=== PATIENT | male | born 2000 | race Caucasian/White ===

== ENCOUNTER 2019-01-13 19:43 | Observation (INO) | payer SELFPAY ==
[2019-01-13 19:44] VITALS: BP 118/74; PULSE 89; RESP 18; TEMP 37.3; O2SAT 99; BMI 21.7
[2019-01-13 20:23] LABS: Bacteria 0 SEEN /hpf (None Seen); Mucous, Urine 0 SEEN /hpf (<or=2+); Red Blood Cells-Urine 0 SEEN /hpf (0-5); Squamous Epithelial Cells - UA 0 SEEN /hpf (0-5); White Blood Cells 0 SEEN /hpf (0-5)
[2019-01-13 20:46] LABS: Color, Urine Yellow (Yellow); Glucose, Dipstick Normal (Normal); Ketone-Dipstick Negative (Negative); Leukocyte Esterase-Dipstick Negative /ul (Negative); Nitrite-Dipstick Negative (Negative); Occult Blood-Urine Negative /ul (Negative); Protein-Dipstick Negative (Negative); Urine Bilirubin Dipstick Negative (Negative); Urine Clarity Clear (Clear); Urine Urobilinogen Normal (Normal)
--- NOTE | 2019-01-13 21:35 | CT_ITS ---
We are attempting to reach an attending provider to discuss findings. An addendum with communication details will be sent when the communication is complete. STUDY: CT ABDOMEN AND PELVIS WITH CONTRAST REASON FOR EXAM: Male, 18 years old. Right lower quadrant pain RADIATION DOSAGE (If Supplied By Facility): CTDIvol = ( 13.55 ) mGy, DLP = ( 572.19 ) mGycm TECHNIQUE: Transaxial images were obtained from the dome of the diaphragm to the symphysis pubis without oral contrast. 100 IV/Oral Isovue 300 was administered. Sagittal and coronal images were reconstructed. Individualized dose optimization techniques were used for this CT. COMPARISON: None. FINDINGS: The visualized lung bases are unremarkable. The visualized portions of the heart are within normal limits. Normal liver. There is mild gallbladder distention.. Normal spleen. Normal pancreas. Normal bilateral adrenal glands. Normal right kidney. Normal left kidney. Normal visualized stomach. Normal small intestine. There is a moderate colonic fecal load. The appendix measures 6 mm in diameter. There are no adjacent inflammatory changes. Normal abdominal aorta. Normal inferior vena cava. Normal retroperitoneum. There is mild distended bladder. There are likely bilateral scrotal hydroceles. Normal abdominal wall. There is Schmorl's node inferior endplate of L4 and inferior endplate of L3. CT/Abdomen/Pelvis WITH Contrast IMPRESSION: The appendix is at the upper limits of normal size with a diameter of 6 mm.. There are no adjacent inflammatory changes. The possibility of early appendicitis cannot be excluded. This should be correlated with clinical history, physical exam findings and laboratory results. CT rectal contrast study or delayed CT exam could be performed to further evaluate. Mild gallbladder distention, if there is clinical concern for acute cholecystitis right upper quadrant ultrasound could be performed Moderate colonic fecal load Mild distended bladder Likely bilateral scrotal hydroceles Lumbar spine Schmorl's nodes The results were called to and discussed with Physician: Georges Smalls after my review at approximately 12:02 AM 01/14/2019. Electronically Signed: Sharif Obrien at 0:05 EDT Tel , Service support ,
[2019-01-13 21:44] LABS: Absolute Lymphocyte Count 1.44 X10^3/uL (0.83-4.51); Absolute Neutrophil Count 8.1 X10^3/uL (2.0-7.7); Basophil# 0.02 X10^3/uL; Basophil% 0.2 % (0-1); Eosinophil# 0.06 X10^3/uL; Eosinophils% 0.6 % (0-5); Hematocrit 41.5 % (40-54); Hemoglobin 14.5 g/dL (13.0-16.5); Lymphocyte # 1.44 X10^3/ul (4.0); Lymphocyte % 13.5 % (19-41); Mean Corp Hgb Conc 34.9 g/dL (32-36); Mean Corpuscular Hgb 30.5 pg (27.0-32.0); Mean Corpuscular Volume 87.4 fL (80-94); Mean Platelet Vol. 8.8 fl (6.2-12.0); Monocyte# 0.96 X10^3/uL; NRBC Flagged by Analyzer 0 % (0-5); Neutrophil # 8.14 X10^3/uL (2.7-7.7); Neutrophil % 76.4 % (47-70); Platelet Count 192 K/mm3 (150-450); RBC Distribution Width CV 11.9 % (11.6-14.6); RBC Distribution Width SD 38.3 fl (35.1-43.9); Red Blood Count 4.75 M/mm3 (4.6-6.2); White Blood Count 10.7 K/mm3 (4.4-11.0)
[2019-01-13 21:56] LABS: Anion Gap 7 (5-15); BUN 20 mg/dL (7-18); BUN/Creat Ratio 18.2 RATIO (10-20); Calcium,Total 9.1 mg/dL (8.5-10.1); Chloride 106 mmol/L (98-107); EST Glomerular Filtration Rate 91 mL/min (>60); Est Glom Filt Rate - Afr Amer 110 mL/min (>60); Estimated Creatinine Clearance 117.18 ml/min; Glucose 81 mg/dL (74-106); Potassium 3.8 mmol/L (3.5-5.1); Sodium Level 141 mmol/L (136-145)
--- NOTE | 2019-01-13 21:57 | ED.VIS.GI ---
History of Present Illness Chief Complaint: Abd Pain Informant: Patient - Abdominal Pain/Flank Pain Onset: Today - afternoon Context: Gradual Onset Timing: Continuous Quality: Aching Location: RLQ Current Severity: Moderate Maximum Severity: Moderate Worsened by: Car ride Relieved by: Nothing - Nausea/Vomiting/Emesis GI Symptom: Negative for: Nausea, Vomiting - Diarrhea/Melena/Hematochezia GI Symptom: Negative for: Diarrhea, Melena, Hematochezia Associated Symptoms: Negative for: Dysuria, Frequency, Hematuria, Urgency Narrative: Patient states he woke up this morning not feeling well but had no abdominal discomfort or nausea, he states he felt a little congested in his face/nose. As the day went on he started developing right lower quadrant discomfort, no radiation or migration, it is more prominent now. No fevers. Decreased appetite but no nausea. Mom states there is concern for appendicitis because both his mother and father had it. Past Medical History - Allergies and Home Meds Allergies/Adverse Reactions: Allergies No Known Allergies Allergy (Verified 01/13/19 19:43) Primary Care Physician: Deven Buckley DO [Primary Care Provider] - Past Medical History: None Surgical History: - - Orthopedic forearm Lives: With Family Smoking Status: Never smoker Drugs: None - Family History Maternal Family History: Reports: No pertinent history Review of Systems General: Reports: Malaise. Denies: Chills, Fever, Sweats Eyes: Denies: Visual changes - bilaterally, Diplopia ENT: Denies: Rhinorrhea, Sore throat Cardiovascular: Denies: Chest pain, Palpitations Respiratory: Denies: Dyspnea, Cough, Dyspnea on exertion Gastrointestinal: Reports: Abdominal pain. Denies: Nausea, Vomiting, Diarrhea, Melena, Hematochezia Genitourinary: Denies: Dysuria, Hematuria, Frequency Musculoskeletal: Denies: Back pain, Extremity Pain Skin: Denies: Rash, Wounds Neurological: Denies: Headache, Weakness, Numbness Physical Exam Vital Signs/Narrative: Vital Signs Temp Pulse Resp BP Pulse Ox 01/13/19 19:44 99.1 F 89 18 118/74 99 Inital Vital Signs reviewed: Yes General: Well nourished, Well developed, No Acute Distress Head: Normocephalic, Atraumatic Eyes: Perrl, EOMI ENT: Moist mucous membranes, No rhinorrhea Neck: Supple, Nontender Cardiovascular: Regular rate, Regular rhythm, No murmurs Respiratory: No distress, CTA bilaterally, Chest nontender Abdomen: Soft, Nontender, Nondistended, Normal bowel sounds, Tender - Right lower quadrant, very tender at McBurney's point, Guarding - Voluntary at McBurney's point only, Psoas sign, Obturator sign. Negative for: Rebound tenderness, Rovsig's sign, Miranda's sign Back: Nontender, Normal Inspection. Negative for: CVA tenderness Extremities: Nontender, No edema Skin: Normal color, No rash, No Trauma Neurological: Alert, Oriented x3, Cranial nerves II-XII grossly intact, Normal Strength, Normal Sensation Psychological: Normal affect, Normal Mood Diagnostic/Tx/Re-eval Laboratory Tests 01/13/19 01/13/19 01/13/19 Range/Units 21:15 21:15 20:11 WBC 10.7 (4.4-11.0) K/mm3 RBC 4.75 (4.6-6.2) M/mm3 Hgb 14.5 (13.0-16.5) g/dL Hct 41.5 (40-54) % MCV 87.4 (80-94) fL MCH 30.5 (27.0-32.0) pg MCHC 34.9 (32-36) g/dL RDW Std Deviation 38.3 (35.1-43.9) fl RDW Coeff of Gabriela 11.9 (11.6-14.6) % Plt Count 192 (150-450) K/mm3 MPV 8.8 (6.2-12.0) fl Immature Gran % (Auto) 0.300 (0.0-0.9) % Neut % (Auto) 76.4 H (47-70) % Lymph % (Auto) 13.5 L (19-41) % [place] % (Auto) 9.0 (0-10) % Eos % (Auto) 0.6 (0-5) % Baso % (Auto) 0.2 (0-1) % Absolute Neuts (auto) 8.1 H (2.0-7.7) X10^3/uL Absolute Lymphs (auto) 1.44 (0.83-4.51) X10^3/uL Nucleated RBC % 0 (0-5) % Sodium 141 (136-145) mmol/L Potassium 3.8 (3.5-5.1) mmol/L Chloride 106 (98-107) mmol/L Carbon Dioxide 28.0 (21.0-32.0) mmol/L Anion Gap 7 (5-15) BUN 20 H (7-18) mg/dL Creatinine 1.10 (0.70-1.30) mg/dL Estim Creat Clear Calc 117.18 ml/min Est GFR (MDRD) Af Amer 110 (>60) mL/min Est GFR (MDRD) Non-Af 91 (>60) mL/min BUN/Creatinine Ratio 18.2 (10-20) RATIO Glucose 81 (74-106) mg/dL Calcium 9.1 (8.5-10.1) mg/dL Urine Color Yellow (Yellow) Urine Clarity Clear (Clear) Urine pH 6.0 (5.0 - 8.0) Ur Specific [place] 1.020 (1.002-1.030) Urine Protein Negative (Negative) mg/dl Urine Glucose (UA) Normal (Normal) mg/dl Urine Ketones Negative (Negative) mg/dl Urine Occult Blood Negative (Negative) /ul Urine Nitrite Negative (Negative) Urine Bilirubin Negative (Negative) mg/dL Urine Urobilinogen Normal (Normal) mg/dl Ur Leukocyte Esterase Negative (Negative) /ul Urine RBC 0 SEEN (0-5) /hpf Urine WBC 0 SEEN (0-5) /hpf Ur Squamous Epith Cells 0 SEEN (0-5) /hpf Urine Bacteria 0 SEEN (None Seen) /hpf Urine Mucus 0 SEEN (<or=2+) /hpf - Medical Decision Making Patient has a white blood count at the high end of normal with a slight leftward shift, no bands. I am suspicious of appendicitis. I obtained a CT scan with oral and IV contrast, there is contrast in the ascending colon however the appendix did not fill, but there is no appendicolith. It is 6 mm, high end of normal limits, with no obvious signs of inflammation. Radiology could not rule out acute appendicitis based on this, but saw no other explanation for the patient's pain based on CT. My suspicion is that this is early acute appendicitis. Discussed with Dr. Alaniz who evaluated in the ED and agrees. ED Disposition - Plan for ED Patient: Disposition: Acute Care [facility] Diagnosis: Acute appendicitis Referrals: Deven Buckley DO [Primary Care Provider] -
[2019-01-13 22:00] VITALS: BP 120/74; PULSE 67; RESP 18; RESP 71; TEMP 36.9; O2SAT 97
[2019-01-13] MEDS: Morphine 4 MG/ML Syringe IV (22:13)
[2019-01-13] MEDS: 0.9% Normal Saline 1,000 ML 250 ML IV (22:14)
[2019-01-13 22:58] VITALS: BP 120/75; PULSE 57; RESP 18; TEMP 36.9; O2SAT 100
[2019-01-14] VITALS (12 sets, daily range): BP systolic 98–129; BP diastolic 57–84; PULSE 45–79; RESP 16–18; TEMP 36.3–37.2; O2SAT 95–100; BMI 22.0
--- NOTE | 2019-01-14 | APP_PTH ---
PATIENT: LUIS SANTIAGO LOC: MS3 U#:[id number] AGE/SX: 18/M ROOM: MS316 RE01/14/[address]: Dr. Uziel Alaniz MD : 2000 BED: 1 DIS: 01/14/2019 SPEC #: [id number] RECD: 01/14/19 12:42 STATUS: SHANELL RESandra #: [id number] MADIHA: 01/14/19 00:[address]: Uziel Alaniz DEPT: SURGICAL PATHOLOGY RECD BY: Arsenio Baumann ENTERED: 01/14/19 12:43 SP TYPE: APPENDIX OTHR DR: Dr. Deven Buckley DO Tissues: Appendix, NOS Procedures: Surgery Specimen Level III HEADER OPERATION: Laparoscopic, appendectomy PRE-OP DIAGNOSIS: Acute appendicitis TISSUE SUBMITTED: Appendix MICROSCOPIC DIAGNOSIS Appendix, appendectomy: Acute appendicitis and periappendicitis. SJ:bonnie 01/15/19 MICROSCOPIC DESCRIPTION Slides are reviewed. GROSS DESCRIPTION Received is one container labeled with the patient's name and designated appendix. The specimen consists of a vermiform appendix measuring 9 cm in length and 1 cm in greatest diameter. No gross perforations are identified. Submitted serial sections reveal a pin point lumen. Towel Cabinet Repairer sections are submitted in one cassette. / AM:sp 01/14/19 TC: 2 CPT: 92591
--- NOTE | 2019-01-14 00:45 | HP.PCM_ITS ---
Problem List (1) Acute appendicitis Status: Acute Qualifiers: Acute appendicitis type: unspecified acute appendicitis type Qualified Code(s): K35.80 - Unspecified acute appendicitis History of Present Illness Date of Admission: 01/14/19 The patient is a 18 year old M who presented with right lower quadrant pain. He said the pain started early this morning. He said he has not felt well all day. He is complaining of right lower quadrant pain that does not radiate. He does not complain of any nausea or vomiting at the moment. No fevers or chills. Past Medical History Allergies No Known Allergies Allergy (Verified 01/13/19 19:43) Home Medications: Ambulatory Orders Medication Instructions Recorded NK 01/13/19 Surgical History: - - Orthopedic forearm Lives: With Family Smoking Status: Never smoker Drugs: None - *Family History Maternal History Items: No pertinent history Review of Systems Constitutional: Reports: Anorexia. Denies: Chills, Fever Cardiovascular: Denies: Chest Pain Respiratory: Denies: Cough, Shortness of Breath Gastrointestinal: Reports: Abdominal Pain. Denies: Nausea, Vomiting Genitourinary: Denies: Dysuria Musculoskeletal: Denies: Joint Tenderness Skin: Denies: Dryness Neurological: Denies: Balance problems Psychiatric: Denies: Anxiety, Depression VTE Information - Inpt Only VTE Present on Admission: No VTE Mechan Device Prophylaxis: SCD's Patient Problems: Active and Suspected Problems Acute appendicitis (Acute) - Physical Exam General: Alert, Oriented x3 Neck: No JVD Lungs: Normal air movement Cardiovascular: Regular rate, Regular Rhythm Abdomen: Soft, Non-Distended, Tender - Tender in the right lower quadrant at McBurney's point. Positive Rovsing sign. Skin: No rashes Musculoskeletal: No Tenderness to Palpation of Joints or Extremities Neurological: Cranial nerves II-XII grossly intact Psych/Mental Status: Normal Affect Vital Signs Temp Pulse Resp BP Pulse Ox 98.9 F 68 18 129/84 H 100 01/14/19 00:00 01/14/19 00:00 01/14/19 00:00 01/14/19 00:00 01/14/19 00:00 Oxygen Delivery Method Room Air Weight: 169 lb 1.513 oz Body Mass Index (BMI) 21.7 Laboratory Tests Past 24 Hrs 01/13/19 01/13/19 01/13/19 20:11 21:15 21:15 WBC 10.7 RBC 4.75 Hgb 14.5 Hct 41.5 MCV 87.4 MCH 30.5 MCHC 34.9 RDW Std Deviation 38.3 RDW Coeff of Gabriela 11.9 Plt Count 192 MPV 8.8 Immature Gran % (Auto) 0.300 Neut % (Auto) 76.4 H Lymph % (Auto) 13.5 L [place] % (Auto) 9.0 Eos % (Auto) 0.6 Baso % (Auto) 0.2 Absolute Neuts (auto) 8.1 H Absolute Lymphs (auto) 1.44 Nucleated RBC % 0 Sodium 141 Potassium 3.8 Chloride 106 Carbon Dioxide 28.0 Anion Gap 7 BUN 20 H Creatinine 1.10 Estim Creat Clear Calc 117.18 Est GFR (MDRD) Af Amer 110 Est GFR (MDRD) Non-Af 91 BUN/Creatinine Ratio 18.2 Glucose 81 Calcium 9.1 Urine Color Yellow Urine Clarity Clear Urine pH 6.0 Ur Specific [place] 1.020 Urine Protein Negative Urine Glucose (UA) Normal Urine Ketones Negative Urine Occult Blood Negative Urine Nitrite Negative Urine Bilirubin Negative Urine Urobilinogen Normal Ur Leukocyte Esterase Negative Urine RBC 0 SEEN Urine WBC 0 SEEN Ur Squamous Epith Cells 0 SEEN Urine Bacteria 0 SEEN Urine Mucus 0 SEEN Clinical Impression(s) from Imaging Studies Abdomen/Pelvis CT 01/13/19 21:35 IMPRESSION: The appendix is at the upper limits of normal size with a diameter of 6 mm.. There are no adjacent inflammatory changes. The possibility of early appendicitis cannot be excluded. This should be correlated with clinical history, physical exam findings and laboratory results. CT rectal contrast study or delayed CT exam could be performed to further evaluate. Mild gallbladder distention, if there is clinical concern for acute cholecystitis right upper quadrant ultrasound could be performed Moderate colonic fecal load Mild distended bladder Likely bilateral scrotal hydroceles Lumbar spine Schmorl's nodes The results were called to and discussed with Physician: Georges Smalls after my review at approximately 12:02 AM 01/14/2019. Electronically Signed: Sharif Obrien, at 0:05 EDT Tel , Service support , ADDENDUM: 01/14/19 0014 IMPRESSION: The appendix is at the upper limits of normal size with a diameter of 6 mm.. There are no adjacent inflammatory changes. The possibility of early appendicitis cannot be excluded. This should be correlated with clinical history, physical exam findings and laboratory results. CT rectal contrast study or delayed CT exam could be performed to further evaluate. Mild gallbladder distention, if there is clinical concern for acute cholecystitis right upper quadrant ultrasound could be performed Moderate colonic fecal load Mild distended bladder Likely bilateral scrotal hydroceles Lumbar spine Schmorl's nodes The results were called to and discussed with Physician: Georges Smalls after my review at approximately 12:02 AM 01/14/2019. N.B. : The above information has been verbally conveyed by Sharif Obrien to Georges Smalls MD, on 01/14/2019 00:07:54 (ET). Electronically Signed: Sharif Obrien, at 0:05 EDT Tel , Service support , Assessment/Plan All Active Problems Acute appendicitis (Acute) 18-year-old male with acute appendicitis 1. Patient has right lower quadrant pain and left shift on CBC. CT scan shows a borderline appendix with thick gomez. This appears to be acute appendicitis. I explained that there is possibility that it is not but I would recommend exploratory laparoscopy with appendectomy to rule this out. His story fits with appendicitis well. He reports that the pain was sudden onset and has not gone away and is in the right lower quadrant. He explains that he has anorexia and has not felt like eating all day but he does not have any nausea or vomiting. I will start the patient on antibiotics and take him in the morning for laparoscopic appendectomy. 2. I explained the appendectomy to the patient in detail. I explained the risks including but not limited to bleeding, infection, injury to surrounding organs such as the colon, ureter, bladder. Patient understands the risks and is willing to proceed with surgery. Uziel Alaniz MD Pager: [facility] [address] [place] [address], [address] [place] [address] Office:
[2019-01-14] MEDS: 0.9% Normal Saline 1,000 ML 100 ML IV (01:45)
[2019-01-14] MEDS: Piperacil/Tazobactam 3.375 GM/50 ML ML IV (02:17)
[2019-01-14] MEDS: Bupiv/Epi 0.25% 30 ML Vial (06:50)
--- NOTE | 2019-01-14 07:25 | OP.PCM_ITS ---
Problem List (1) Acute appendicitis Status: Acute Qualifiers: Acute appendicitis type: unspecified acute appendicitis type Qualified Code(s): K35.80 - Unspecified acute appendicitis Report of Operation Date of Procedure: 01/14/19 Pre-Operative Diagnosis: Acute appendicitis Post-Operative Diagnosis: Same Surgery/Procedure Performed:: Laparoscopic appendectomy Description of Surgical Findings:: Inflamed appendix Specimen's removed: Appendix Description of Procedure: The patient was brought into the operating room and general anesthesia was induced. The left arm was tucked and the abdomen was prepped and draped in usual sterile fashion. A curvilinear incision was made superior to the umbilicus and deepened to the level of the fascia. The patient had a small umbilical hernia. The hernia defect was slightly lengthened with a scalpel. A finger sweep was performed and a balloon trocar was placed into the abdomen and inflated. The abdomen was insufflated to 15 mmHg and the camera was inserted and the abdomen was inspected for any injuries upon entering the abdomen. There were none. The patient was placed in Trendelenburg position and a 5 mm ports placed in the left lower quadrant and suprapubic areas under direct visualization. Next using atraumatic bowel graspers the appendix was identified. The appendix was grasped and elevated and a harmonic scalpel was used to take down the mesoappendix. A stapler was used to come across the base of the appendix. The appendix was then placed in Endo Catch bag and removed through the umbilical incision. The staple line was inspected and found to be hemostatic and intact. The 2 5 mm ports are removed under direct visualization. The balloon trocar was deflated and removed and all the air was removed from the abdomen. The umbilical incision fascia was closed with an 0 Vicryl [id number] suture. The incisions were then irrigated with saline and dried. Local anesthetic was injected into the incision sites. The skin incisions were then closed with interrupted 4-0 Monocryl suture and Steri- Strips. Bandages were applied and the patient was awoken and taken to PACU in stable condition. Patient tolerated the procedure well. - Admit VTE Documentation VTE Mechan Device Prophylaxis: SCD's
--- NOTE | 2019-01-14 07:28 | DCINST_ITS ---
Discharge Diet: Light diet - advance as tolerated Discharge Activity: May Not Drive - for 3-5 days or while taking narcotic pain meds. May shower in (days): 1 Lifting Restrictions: 20 lbs for 2 weeks Call your doctor if your incision/area has: Continuous Slow Oozing, Sudden Increased Bleeding, Increased Pain/ Swelling, Increased Redness, Foul Smelling Discharge Call your doctor if you observe: Fever of 101 or Higher Suture Line Care: Avoid Pulling/Pushing, Avoid Pinching/Bending Additional Dressing/Incision Instructions:: Keep dressing clean and dry. Change or remove dressing in 2 days. Leave steri strips for 1 week. May protect with a gauze bandaid. Medications to take at Discharge Hydrocodone Bitart/Apap 5-325 [[place] 5/325] 1 - 2 tablet PO Q4H PRN PRN 4 Days #20 tablet 01/14/19 Allergies/Adverse Reactions: Allergies No Known Allergies Allergy (Verified 01/13/19 19:43) The following prescriptions were given: Hydrocodone Bitart/Apap 5-325 [[place] 5/325] 1 - 2 tablet PO Q4H PRN PRN 4 Days #20 tablet PRN Reason: Severe Pain (6-10/10) Transmission Status: Sent to [facility] Primary Care Physician: Deven Buckley DO [Primary Care Provider] - Test Results: Test results from this visit will be discussed in further detail at your follow- up appointment, if applicable. Please Follow Up With: Uziel Alaniz MD When: Please call to schedule 2 week follow up appointment. [phone]
== END 2019-01-14 13:10 | disposition home or self-care (01) ==
LOC: ED 01-14 00:52 → MS3 01-14 00:55
PROVIDERS: Admitting Provider Surgery; Emergency Provider Emergency Medicine; Family Provider Family Medicine; PCP Family Medicine; Visit Provider Surgery
PROC: 0DTJ4ZZ Resection of Appendix, Percutaneous Endoscopic Approach (ICD-10-PCS; CPT 44970; principal; 2019-01-14 06:30)
DX: K35.80 Unspecified acute appendicitis (principal)
CPT/HCPCS: 44970; 74177; 80048; 81001; 85025; 88304; 96361; 96365; 96375; 99218; 99282; J7030; J7120; Q9967; A4216; C1760; G0378; J2405